=== PATIENT | male | born 1985 | race Caucasian/White ===

== ENCOUNTER 2024-07-21 12:24 | Emergency (ER) | payer BC ==
[2024-07-21 13:29] VITALS: RESP 16
--- NOTE | 2024-07-21 13:34 | ERPHSYRPT ---
- History of Present Illness Time Seen by Provider: 07/21/24 13:34 Source: patient Exam Limitations: no limitations Patient Subjective Stated Complaint: PT HERE FOR LACEARTION TO RIGHT THUMB AFTER USING A KNIFE TO OPEN AD PACKAGE, Triage Nursing Assessment: PT ALERT, WALKED IN, HOLDING PRESSURE TO RIGHT HAND, LACERATION TO TUMB , NO BLEEDING AT THIS TIME, REP EASY, SKIN W/D/P. Physician History: This is a left handed 39-year-old white male patient who presents to the emergency department by private vehicle accompanied by his spouse with a 1-1/2 cm superficial skin laceration to the palmar aspect of his right thumb. Patient was using his new knife that he received as a gift for [employer] when he accidentally lacerated himself. His tetanus status is up-to-date having had 1 within the last 5 years per his report Timing/Duration: today Quality: painful Severity: mild Location: hands (Right thumb palmar aspect laceration) Associated Symptoms: denies symptoms Allergies/Adverse Reactions: No Known Drug Allergies Allergy (Unverified 07/21/24 13:22) Home Medications: Lisinopril 20 mg [Zestril 20 MG] 20 mg PO DAILY 07/21/24 [History] Hx Tetanus, Diphtheria Vaccination/Date Given: Yes (LESS THAN 5) Hx Influenza Vaccination/Date Given: No Hx Pneumococcal Vaccination/Date Given: No Immunizations Up to Date: Yes Travel Risk - International Travel Have you traveled outside of the country in past 3 weeks: No - Emerging Infectious Disease Are you exhibiting symptoms associated with any current EIDs: No - Review of Systems Constitutional: No Symptoms Eyes: No Symptoms Ears, Nose, & Throat: No Symptoms Respiratory: No Symptoms Cardiac: No Symptoms Abdominal/Gastrointestinal: No Symptoms Genitourinary Symptoms: No Symptoms Musculoskeletal: No Symptoms Skin: Other (Skin laceration right thumb palmar aspect) Neurological: No Symptoms Psychological: No Symptoms Endocrine: No Symptoms Hematologic/Lymphatic: No Symptoms Immunological/Allergic: No Symptoms All Other Systems: Reviewed and Negative - Past Medical History Pertinent Past Medical History: Yes Cardiac History: High Cholesterol, Hypertension - Past Surgical History Past Surgical History: No - Social History Smoking Status: Never smoker Exposure to second hand smoke: No Drug Use: none - Social Determinants of Health Will the patient participate in the screening: Declined to provide - Nursing Vital Signs Nursing Vital Signs: Initial Vital Signs Respiratory Rate 16 07/21/24 13:29 Pain Scale Pain Intensity 2 - Physical Exam General Appearance: no apparent distress, alert, anxiety Eye Exam: PERRL/EOMI, eyes nml inspection Ears, Nose, Throat Exam: normal ENT inspection, moist mucous membranes Neck Exam: normal inspection, non-tender, supple, full range of motion Respiratory Exam: airway intact, No chest tenderness, No respiratory distress Gastrointestinal/Abdomen Exam: No tenderness Rectal Exam: not done Extremity Exam: normal range of motion, pelvis stable, lacerations (1 and half centimeter skin laceration right thumb palmar aspect), other (Neurovascularly intact and tendon function intact) Neurologic Exam: alert, oriented x 3, cooperative, ramp service man II-XII nml as tested, nml cerebellar function, nml station & gait, sensation nml Skin Exam: laceration (1 and half centimeter skin laceration palmar aspect right thumb no foreign body) Lymphatic Exam: No adenopathy SpO2 Interpretation: normal O2 Delivery: Room Air Procedures - Laceration/Wound Repair Right Distal Volar Finger Time of Procedure: 13:45 Wound Location: Right, hand (Thumb palmar aspect) Wound Length (cm): 1.5 Wound's Depth, Shape: superficial, linear, into subcut Wound Explored: clean (Wound explored to the base in a bloodless field. No foreign body noted) Irrigated: Yes Hibiclens Prep: Yes Wound Repaired With: Steri-strips (Benzo), Dermabond - Course Nursing assessment & vital signs reviewed: Yes - Progress Progress: improved Progress Note: 07/21/24 13:49 My medical decision making and the assignment of low complexity to this patient's medical issue today is based on review of the patient's past medical history, review the patient's medication list, reviewed patient drug allergy list, history present illness and physical findings on examination. No radiographic or laboratory studies are necessary in the workup of this patient. Differential diagnosis includes but is not limited to skin abrasion, skin laceration Counseled pt/family regarding: diagnosis Medical Desision Making - Independent Historian Additional History obtained from: Spouse - Diagnostic Testing Diagnostic test were ordered, analyzed, and reviewed by me: No - Risk of complications Minimal Risk: Minimal risk of morbidity - Departure Departure Disposition: Home Clinical Impression: Laceration of right thumb Condition: Stable Critical Care Time: No Referrals: GEN BARRIOS NP [Primary Care Provider] - Follow up/PCP as directed Additional Instructions: Keep the laceration repair site dry until noon on 07/22/2024. At that time you may rinse the site off with soapy water. Blot dry use a english division chair. Leave the Steri-Strips in place until they fall off on their own in the next 5 to 7 days. Trim the edges as they curl up.
== END 2024-07-21 14:18 | disposition home or self-care (01) ==
LOC: ED 12:24
DX: S61.011A Laceration without foreign body of right thumb without damage to nail, initial encounter (principal); W26.0XXA Contact with knife, initial encounter
CPT/HCPCS: 12001; 99281; 99282